=== PATIENT | male | born 1990 | race Two or more races ===

== ENCOUNTER 2018-09-04 10:26 | Inpatient (IN) | payer SELFPAY ==
[~2018-09-04] VITALS: Ht 170.2 cm; Wt 81.6 kg
[2018-09-04] MEDS ORDERED: SODIUM CHLORIDE 0.9% 1,000 ML IVB ONE (10:39)
[2018-09-04] MEDS ORDERED: cefTRIAXone 1GM/50ML D5W 50 ML IV ONE (10:45)
[2018-09-04 11:37] LABS: Basophils # (auto) 0 uL; Basophils % (auto) 0.2 % (0.0-2.0); Eosinophils # (auto) 0 uL; Eosinophils % (auto) 0.2 % (0.0-7.0); Hematocrit 45.2 % (41.0-53.0); Hemoglobin 15.4 g/dL (13.5-17.5); Lymphocytes # (auto) 1.2 uL; Lymphocytes % (auto) 8.6 % (10.0-50.0); Mean Corpuscular Hemoglobin 29.3 pg (28.0-32.0); Mean Corpuscular Volume 86.1 fL (80.0-100.0); Monocytes # (auto) 0.9 uL; Monocytes % (auto) 6.3 % (0.0-12.0); Neutrophils # (auto) 11.6 uL; Neutrophils % (auto) 84.7 % (37.0-80.0); Nucleated Red Blood Cells % 0.1 %; Platelet Count (auto) 272 10^3/uL (140-450); Red Blood Cells 5.25 10^6/uL (4.5-5.90); Red Cell Distribution Width 12.8 % (11.8-14.3); White Blood Cell 13.7 10^3/uL (4.4-10.8)
[2018-09-04 11:51] LABS: Albumin 4.5 g/dL (3.4-5.0); BUN/Creatinine Ratio 13.4; Calcium 9.4 mg/dL (8.5-10.1); Potassium 3.7 mmol/L (3.5-5.1)
[2018-09-04 11:53] LABS: Bilirubin, Total 0.8 mg/dL (0.2-1.0); Total Protein 8.1 g/dL (6.4-8.2)
[2018-09-04 11:57] LABS: INR 0.97 (0.9-1.15); Partial Thromboplastin Time 26.2 sec (23.64-32.05)
[2018-09-04 12:38] LABS: Urine Bacteria NONE SEEN /hpf (None Seen); Urine Blood TRACE /uL (Negative); Urine Specific Gravity 1.015 (1.001-1.035); Urine WBC <1 /hpf (0 - 3)
[2018-09-04] MEDS ORDERED: SUCCINYLCHOLINE CHLORIDE 20 MG/ML 10ML VIAL IV ONE (14:03)
[2018-09-04] MEDS ORDERED: PROPOFOL 10 MG/ML 20 ML IV ONE (14:22)
[2018-09-04] MEDS ORDERED: LIDOCAINE 1% (LOCAL ANESTH.) PF 5ml SDV ONE (14:22)
[2018-09-04] MEDS ORDERED: MIDAZOLAM HCL 1MG/1ML-2 ML VIAL ONE (14:22)
[2018-09-04] MEDS ORDERED: ROCURONIUM 10MG/ML 10ML VIAL IV ONE (14:22)
[2018-09-04] MEDS ORDERED: ceFAZolin 1GM/50ML 50 ML IV ONE ×2 (14:27→15:15)
[2018-09-04] MEDS ORDERED: NALOXONE HCL 0.4 MG/ML VIAL IV PRN (14:30)
[2018-09-04] MEDS ORDERED: HYDROmorphone HCL 2 MG/ML VL IV PRN ×2 (14:30→17:00)
[2018-09-04] MEDS ORDERED: ONDANSETRON HCL 4 MG/2 ML VIAL IV ONE ×2 (14:30→15:15)
[2018-09-04] MEDS ORDERED: METOCLOPRAMIDE HCL 5MG/ml INJ 2ml VIAL ONE (14:32)
[2018-09-04] MEDS ORDERED: fentaNYL CITRATE 100 MCG/2 ML VL ONE (14:41)
[2018-09-04] MEDS ORDERED: SODIUM CHLORIDE LOCK 10 ML ONE (14:45)
[2018-09-04] MEDS ORDERED: PHENYLEPHRINE HCL 10 MG/ML VL ONE (14:45)
[2018-09-04] MEDS ORDERED: NEOSTIGMINE 1 MG/ML INJ (10mg/10ML VIAL) ONE (14:59)
[2018-09-04] MEDS ORDERED: GLYCOPYRROLATE 0.2 MG/ML 1ML VIAL ONE ×2 (14:59→15:04)
[2018-09-04] MEDS ORDERED: KETOROLAC TROMETH 60MG/2ML VIAL ONE (15:04)
[2018-09-04] MEDS ORDERED: HYDROmorphone HCL 2 MG/ML VL IM ONE (15:15)
[2018-09-04] MEDS ORDERED: D5W/SOD CHL 0.45%/KCL 20MEQ 1,000 ML IV ONE ×2 (15:15→17:15)
[2018-09-04] MEDS ORDERED: metroNIDAZOLE 500MG/100ML 100 ML IV ONE (15:15)
[2018-09-04] MEDS: HYDROmorphone HCL 2 MG/ML VL IV PRN ×3 (15:43→16:29)
--- NOTE | 2018-09-04 16:24 | NUR ---
Received patient from PACU. Patient received Ancef IV at OR, as per NIGHT ASSISTANT, patient has no PRN pain medication ordered post op, NIGHT ASSISTANT will verify with Dr. Diallo the order for pain medication.
[2018-09-04 16:25] VITALS: BP 115/64
[2018-09-04 16:30] VITALS: BP 115/64
[2018-09-04] MEDS ORDERED: PROMETHAZINE HCL 25 MG/ML 1ML IV PRN (16:45)
[2018-09-04] MEDS ORDERED: MORPHINE SULFATE 4 MG/ML SYR/VIAL IV PRN (16:45)
[2018-09-04] MEDS ORDERED: HYDROmorphone HCL 2 MG/ML VL IV ONE (17:00)
[2018-09-04] MEDS: SODIUM CHLORIDE 0.9% 1,000 ML IV SCH (17:19)
[2018-09-04] MEDS: FAMOTIDINE (10MG/ML) 2ML VL IV SCH (17:19)
--- NOTE | 2018-09-04 17:20 | NUR ---
Incentive spirometer at bedside, instructions how to use it given to patient. Bilateral legs on SCDs hooked on SCD machine.
--- NOTE | 2018-09-04 18:15 | NUR ---
Called Dietary that patient did not get dinner tray (Clear Liquid Diet).
--- NOTE | 2018-09-04 19:55 | NUR ---
RECEIVED PT FROM DAY RN POC REVIEWED
[2018-09-04] MEDS: MORPHINE SULFATE 4 MG/ML SYR/VIAL IV PRN (20:15)
--- NOTE | 2018-09-04 20:30 | NUR ---
MEDICATED FOR C/O ABD PAIN 10/18, FAMILY AT BEDSIDE, ABD BINDER IN PLACE, IS AT BEDSIDE, ALL QUESTIONS AND CONCERNS ADDRESSED, ABD DRESSINGS DRY AND INTACT. WILL CONTINUE TO MONITOR
[2018-09-04 22:00] VITALS: BP 113/69
[2018-09-04] MEDS: metroNIDAZOLE 500MG/100ML 100 ML IV SCH (23:54)
--- NOTE | 2018-09-05 01:02 | NUR ---
PT RESTING WITH EYES CLOSED, WILL AMBULATE IN AM
--- NOTE | 2018-09-05 04:11 | NUR ---
PT AWOKE AMBULATE TO BATHROOM DENIES DIZZINESS OR N/V, C/O ABD PAIN 08/18 WILL MEDICATE ORDERED
[2018-09-05] MEDS: FAMOTIDINE (10MG/ML) 2ML VL IV SCH ×2 (05:28→16:50)
[2018-09-05] MEDS: metroNIDAZOLE 500MG/100ML 100 ML IV SCH ×3 (05:29→21:07)
[2018-09-05] MEDS: SODIUM CHLORIDE 0.9% 1,000 ML IV SCH ×3 (05:29→23:09)
[2018-09-05] MEDS: MORPHINE SULFATE 4 MG/ML SYR/VIAL IV PRN (05:46)
[2018-09-05 06:15] VITALS: BP 126/87
[2018-09-05 06:36] LABS: Basophils # (auto) 0 uL; Basophils % (auto) 0.3 % (0.0-2.0); Eosinophils # (auto) 0 uL; Eosinophils % (auto) 0.5 % (0.0-7.0); Hematocrit 40.6 % (41.0-53.0); Lymphocytes # (auto) 0.8 uL; Mean Corpuscular Hemoglobin 29.9 pg (28.0-32.0); Mean Corpuscular Hgb Conc. 34.5 g/dL (32.0-36.0); Mean Corpuscular Volume 86.7 fL (80.0-100.0); Monocytes # (auto) 0.5 uL; Monocytes % (auto) 7.6 % (0.0-12.0); Neutrophils # (auto) 5.6 uL; Neutrophils % (auto) 80.6 % (37.0-80.0); Platelet Count (auto) 222 10^3/uL (140-450); Red Blood Cells 4.68 10^6/uL (4.5-5.90); Red Cell Distribution Width 12.6 % (11.8-14.3)
--- NOTE | 2018-09-05 06:42 | NUR ---
PT AWOKE C/O NOT BEING ABLE TO VOID, STATED THAT HE HAS PAIN IN HIS PENIS, WILL USE BLADDER SCAN BEFORE NOTIFYING HOSPITALIST, SO FAR ONLY 300 OUT THIS SHIFT
--- NOTE | 2018-09-05 07:00 | NUR ---
PTS BLADDER SCANNED 850 ML OF FLUID RETAINED IN BLADDER HOSPITALIST PAGED FOR ORDERS
--- NOTE | 2018-09-05 07:09 | NUR ---
ORDERS RECEIVED FROM HOSPITALIST TO PLACE F/C IN PT
--- NOTE | 2018-09-05 07:20 | NUR ---
Opening Note Received report from burner tender RN. Patient is awake, alert and oriented x4. Patient states abdominal pain 5/10 and is not requesting medication at this time. Patient has a Stevens catheter in place, patent and draining clear yellow urine. Patient is on room air, respirations even and unlabored. Reviewed plan of care with patient, patient verbalized understanding. Bed in low and locked position, call light within reach. Will continue to monitor Q1 hour and PRN.
--- NOTE | 2018-09-05 07:45 | NUR ---
1100 ML OUT OF 16 FR PETERSON CATHETER, MART[place]NE[place] URINE, WILL REPORT OFF TO AM NURSE, PT STATES THAT HIS ABDOMEN FEELS BETTER POSITIVE BOWEL SOUNDS NOTED
[2018-09-05] MEDS: cefTRIAXone 1GM/50ML D5W 50 ML IV SCH (08:53)
[2018-09-05 08:55] VITALS: BP 120/71
--- NOTE | 2018-09-05 10:30 | NUR ---
Patient ambulating Patient ambulating around unit. Patient denies pain at this time. Patient tolerating well. Will continue to monitor Q1 hour and PRN.
--- NOTE | 2018-09-05 11:13 | NUR ---
Patient sitting up in chair Patient sitting up in chair. Patient states he feels alright right now, not requesting pain medications at this time. Family at beside. Will continue to monitor Q1 hour and PRN.
[2018-09-05 12:55] VITALS: BP 127/71
[2018-09-05 17:00] VITALS: BP 122/70
--- NOTE | 2018-09-05 19:10 | NUR ---
Opening Shift Note Report received from day shift RN. Assumed care of patient. Patient sitting in bed awake, alert and orientated x4. No S/S of distress/SOB noted and denies pain at this time. Patient has a Stevens catheter in place, patent and draining clear yellow urine. Educated patient about use of IS, patient verbalized understanding. Instructed on POC and to call for assist PRN, will continue to monitor for changes Q1hr and PRN.
--- NOTE | 2018-09-05 19:20 | NUR ---
Closing Note Report given to material handler 1st shift RN. Patient is awake, alert and oriented x4. No signs or symptoms of distress noted at this time.
[2018-09-05 21:37] VITALS: BP 121/70
[2018-09-06] MEDS: FAMOTIDINE (10MG/ML) 2ML VL IV SCH (04:28)
[2018-09-06 05:00] VITALS: BP 113/70
[2018-09-06] MEDS: metroNIDAZOLE 500MG/100ML 100 ML IV SCH (05:21)
[2018-09-06 06:38] LABS: Basophils # (auto) 0 uL; Basophils % (auto) 0.3 % (0.0-2.0); Eosinophils # (auto) 0.1 uL; Eosinophils % (auto) 1.8 % (0.0-7.0); Hematocrit 38.4 % (41.0-53.0); Hemoglobin 13.1 g/dL (13.5-17.5); Lymphocytes % (auto) 16.4 % (10.0-50.0); Mean Corpuscular Hemoglobin 29.6 pg (28.0-32.0); Mean Corpuscular Volume 86.9 fL (80.0-100.0); Monocytes # (auto) 0.5 uL; Monocytes % (auto) 8.3 % (0.0-12.0); Neutrophils # (auto) 4.4 uL; Neutrophils % (auto) 73.2 % (37.0-80.0); Platelet Count (auto) 212 10^3/uL (140-450); Red Blood Cells 4.42 10^6/uL (4.5-5.90); Red Cell Distribution Width 12.7 % (11.8-14.3)
[2018-09-06 06:53] LABS: Albumin 3.3 g/dL (3.4-5.0); Calcium 8.5 mg/dL (8.5-10.1); Magnesium 2.2 mg/dL (1.6-2.6); Potassium 3.6 mmol/L (3.5-5.1)
[2018-09-06 06:57] LABS: BUN/Creatinine Ratio 9.6; Bilirubin, Total 0.6 mg/dL (0.2-1.0); Total Protein 6.2 g/dL (6.4-8.2)
--- NOTE | 2018-09-06 07:16 | NUR ---
Closing Note Endorsed care to fagoter RN. Patient is awake, alert and oriented x4. No signs or symptoms of distress noted at this time.
--- NOTE | 2018-09-06 07:20 | NUR ---
Opening Note Received report from it specialist RN. Patient is awake, alert and oriented x4. Patient denies pain at this time. Patient has a Stevens catheter in place, patent and draining clear yellow urine. Patient is on room air, respirations even and unlabored. Reviewed plan of care with patient, patient verbalized understanding. Bed in low and locked position, call light within reach. Will continue to monitor Q1 hour and PRN.
[2018-09-06 08:00] VITALS: BP 123/78
[2018-09-06] MEDS: SODIUM CHLORIDE 0.9% 1,000 ML IV SCH (08:41)
[2018-09-06] MEDS: cefTRIAXone 1GM/50ML D5W 50 ML IV SCH (09:23)
--- NOTE | 2018-09-06 12:40 | NUR ---
Dr. Ray at bedside Dr. Ray at bedside, reviewing plan of care with patient. Instructed this RN to begin bladder training. If patient tolerates well, ok to discontinue Stevens catheter. Will implement new orders. Will continue to monitor Q1 hour and PRN.
[2018-09-06 13:00] VITALS: BP 117/71
[2018-09-06] MEDS ORDERED: LEVO500T21 PO (13:49)
[2018-09-06] MEDS ORDERED: METR500T PO (13:49)
[2018-09-06] MEDS ORDERED: HYDROcodone-ACET 5/325MG TAB PO PRN (14:00)
--- NOTE | 2018-09-06 14:02 | NUR ---
Stevens catheter discontinued Order to discontinue Stevens catheter. Stevens removed with clean technique following deflation of balloon. Patient tolerated well with no complaints of pain. Patient instructed to use urinal at bedside, and to notify this RN after first void. Will continue to monitor Q1 hour and PRN.
--- NOTE | 2018-09-06 15:10 | NUR ---
Patient voided Patient voided, 600mls pale yellow urine. Patient denies pain or discomfort at this time. Will continue to monitor Q1 hour and PRN.
[2018-09-06 16:45] VITALS: BP 121/70
--- NOTE | 2018-09-06 17:11 | NUR ---
Discharge Discharge instructions given as ordered. Patient does not have a primary care physician. Patient proved with information. All questions and concerns addressed. Patient verbalized understanding. Patient given new prescriptions. All questions and concerns addressed. IV catheter removed, catheter intact. Patient ambulated to personal vehicle with all belongings, accompanied by family. All personal belongings taken by patient. No signs or symptoms of distress noted at this time.
== END 2018-09-06 17:00 | disposition home or self-care (01) | DRG 854 ==
LOC: ER 10:32 → WEST WING 10:33 → ER 13:05
PROVIDERS: ADMIT Surgery; ATTEND Internal Medicine
PROC: 0DTJ4ZZ Resection of Appendix, Percutaneous Endoscopic Approach (ICD-10-PCS; principal; 2018-09-04 14:27)
DX: A41.9 Sepsis, unspecified organism (principal); K35.80 Unspecified acute appendicitis; E66.01 Morbid (severe) obesity due to excess calories; N99.89 Other postprocedural complications and disorders of genitourinary system; Y83.8 Other surgical procedures as the cause of abnormal reaction of the patient, or of later complication, without mention of misadventure at the time of the procedure; Z83.3 Family history of diabetes mellitus; Z68.28 Body mass index [BMI] 28.0-28.9, adult
CPT/HCPCS: 36415; 71046; 74176; 80053; 81001; 83690; 83735; 85025; 85610; 85730; 86850; 86900; 86901; 93005; 94761; 96365; G0378; J0330; J0690; J0696; J1885; J2250; J2405; J2704; J3490